=== PATIENT | male | born 1965 | race African-American/Black ===

== ENCOUNTER 2018-05-25 15:33 | Emergency (ER) | payer MEDICARE, MEDICAID ==
[2018-05-25] MEDS ORDERED: LOSARTAN 50 MG TABLET PO STA (15:57)
--- NOTE | 2018-05-25 16:01 | ED Physician Documentation ---
History of Present Illness - Stated complaint Stated Complaint: HIGH BP - Chief complaint Chief Complaint: General - History obtained from History obtained from: Patient - History of Present Illness Timing: Today, How many weeks ago (He has been checking his blood pressure at this pharmacy store periodically over the last few weeks. It has been trending a bit higher in the 140-160 range. Last week it was 180 systolic and he rested for a while and the repeat was 140. He had it checked again today and it was 180/110. He talked to the pharmacist who suggested he come to the ER. He denies any chest pain, headache, fluid retention or edema, general weakness or paresthesias. He has not had a recent change in diet nor activity level. He does not take any current blood pressure medicines. He did have high blood pressure several years ago and was on some blood pressure medicine ("a small red pill I think)". He previously had been to [facility] [place] in the past.) Quality: No chest pain, headache nor dyspnea. Associated symptoms: none - Treatment prior to arrival Treatment prior to arrival: none Review of Systems Constitutional: denies: Myalgias, Fatigue Nose: reports: Congestion (mild seasonal). denies: Rhinorrhea / runny nose Throat: denies: Sore throat Cardiac: denies: Chest pain / pressure, Palpitations, Pedal edema, Calf pain Respiratory: denies: Dyspnea, Cough, Wheezing GI: denies: Abdominal Pain, Vomiting, Diarrhea, Bloody / black stool : denies: Dysuria, Frequency Skin: denies: Rash Musculoskeletal: denies: Neck pain, Back pain Neurologic: denies: Generalized weakness, Focal weakness, Numbness, Near syncope, Altered mental status, Headache PD PAST MEDICAL HISTORY - Past Medical History Past Medical History: No Cardiovascular: Hypertension (several years ago, but improved so was taken off meds by PCP. ) Respiratory: None Neuro: None Endocrine/Autoimmune: None - Past Surgical History Past Surgical History: Yes Ortho: Hip replacement - Present Medications Home Medications: Ambulatory Orders Medication Instructions Recorded Confirmed Losartan [Cozaar] 50 mg PO DAILY #30 tablet 05/25/18 - Allergies Allergies/Adverse Reactions: Allergies Allergy/AdvReac Type Severity Reaction Status Date / Time hydrocodone Allergy Itching Verified 05/25/18 15:47 acetaminophen [From Percocet] AdvReac Nausea Verified 05/25/18 15:47 oxycodone HCl * AdvReac Nausea Verified 05/25/18 15:47 [From Percocet] - Living Situation Living Situation: reports: With spouse/s.o. Living Arrangement: reports: At home - Social History Does the pt smoke?: Yes Smoking Status: Current every day smoker Does the pt drink ETOH?: Yes Does the pt have substance abuse?: No - Family History Family history: reports: Non contributory - Immunizations Immunizations are current?: Yes PD ED PE NORMAL - Vitals Vital signs reviewed: Yes - General General: Alert and oriented X 3, No acute distress, Well developed/nourished - HEENT HEENT: Pharynx benign - Neck Neck: Supple, no meningeal sign, No adenopathy - Cardiac Cardiac: RRR, No murmur - Respiratory Respiratory: Clear bilaterally - Abdomen Abdomen: Soft, Non tender - Derm Derm: Normal color, Warm and dry - Extremities Extremities: No deformity, No tenderness to palpate, No edema, No calf tender ness / cord - Neuro Neuro: Alert and oriented X 3, No motor deficit, Normal speech Results - Vitals Vitals: Vital Signs - 24 hr 05/25/18 05/25/18 15:40 16:11 Temperature 36.4 C L Heart Rate 99 87 Respiratory 16 Rate Blood Pressure 189/101 H 187/112 H O2 Saturation 100 100 Oxygen O2 Source Room air - Labs Labs: Laboratory Tests 05/25/18 05/25/18 14:02 14:02 WBC 5.2 RBC 4.23 L Hgb 13.2 L Hct 39.0 L MCV 92.1 MCH 31.2 H MCHC 33.9 RDW 13.7 Plt Count 232 MPV 6.1 L Neut # (Auto) 3.5 Lymph # (Auto) 1.0 L Rice # (Auto) 0.6 Eos # (Auto) 0.0 Baso # (Auto) 0.0 Absolute Nucleated RBC 0.00 Nucleated RBC % 0.0 Sodium 126 L Potassium 4.3 Chloride 94 L Carbon Dioxide 22 Anion Gap 10.0 BUN 5 L Creatinine 1.1 Estimated GFR (MDRD) 85 L Glucose 98 Calcium 9.2 Magnesium 2.3 Total Bilirubin 0.5 AST 26 ALT 28 Alkaline Phosphatase 52 Total Protein 7.7 Albumin 4.3 Globulin 3.4 Albumin/Globulin Ratio 1.3 Lipase 19 L PD MEDICAL DECISION MAKING - ED course Complexity details: considered differential (Blood pressure is high at 189/101. He states it was high last week and a couple of weeks before. This is a reasona ble enough trend and he has a prior history of hypertension years ago. Seems reasonable to start a low dose blood pressure medicine again. Will check basic electrolytes and kidney function. Otherwise he has not had any confusion or headache or chest pain or dyspnea so no apparent major organ dysfunction and again we will check his kidney function level. You can start a low-dose losartan and have him follow-up with the clinic in 1-2 weeks to see how his blood pressure is doing. He can periodically check it in the interval time.), d/w patient Departure - Departure Disposition: 01 Home, Self Care Clinical Impression: Hyponatremia High blood pressure Qualifiers: Hypertension type: other secondary hypertension Qualified Code(s): I15.8 - Other secondary hypertension Condition: Stable Record reviewed to determine appropriate education?: Yes Instructions: ED Hypertension [place] Tx, ED Hyponatremia Follow-Up: Melodie Marcelino ARNP [Primary Care Provider] - Prescriptions: Losartan [Cozaar] 50 mg PO DAILY #30 tablet Comments: Your blood count and kidney function is okay. Your electrolytes show slightly low sodium level your other electrolytes are okay. This could potentially come from over hydrating with water or alcohol. Be sure to not drink excessively. Regular diet. You do not want to add salt to your diet as I will increase your blood pressure. The low sodium on the blood test will correct itself with regular food and fluid intake. Start the daily blood pressure medicine and recheck with your primary care clinic in about 1-2 weeks, call tomorrow for an appointment.
[2018-05-25 16:13] LABS: BASOPHILS % (AUTO) 0.7 %; EOSINOPHILS % (AUTO) 0.2 %; HGB - HEMOGLOBIN 13.2 g/dL (14.0-18.0); LYMPHOCYTES % (AUTO) 19.4 %; MEAN CORPUSCULAR HEMOGLOBIN 31.2 pg (27.0-31.0); MEAN CORPUSCULAR HGB CONC 33.9 g/dL (32.0-36.0); MEAN CORPUSCULAR VOLUME 92.1 fL (80.0-94.0); MEAN PLATELET VOLUME 6.1 fL (7.4-11.4); MONOCYTES # (AUTO) 0.6 10^3/uL (0.0-1.0); MONOCYTES % (AUTO) 11.4 %; NEUTROPHILS # (AUTO) 3.5 10^3/uL (1.5-6.6); NEUTROPHILS % (AUTO) 68.3 %; PLT - PLATELET COUNT 232 10^3/uL (130-450); RED BLOOD COUNT 4.23 10^6/uL (4.70-6.10); RED CELL DISTRIBUTION WIDTH 13.7 % (12.0-15.0); WHITE BLOOD COUNT 5.2 x10^3/uL (4.8-10.8)
[2018-05-25 16:24] LABS: ALBUMIN 4.3 g/dL (3.2-5.5); ALBUMIN/GLOBULIN RATIO 1.3 (1.0-2.2); BILIRUBIN,TOTAL 0.5 mg/dL (0.2-1.0); CALCIUM 9.2 mg/dL (8.5-10.3); CREATININE 1.1 mg/dL (0.6-1.2); MAGNESIUM 2.3 mg/dL (1.7-2.8); TOTAL PROTEIN 7.7 g/dL (6.7-8.2)
[2018-05-25 16:33] VITALS: BP 176/100
== END 2018-05-25 16:38 | disposition home or self-care (01) ==
LOC: ED 15:33
DX: E87.1 Hypo-osmolality and hyponatremia (principal); I15.8 Other secondary hypertension; F17.200 Nicotine dependence, unspecified, uncomplicated; Z96.649 Presence of unspecified artificial hip joint
CPT/HCPCS: 36415; 80053; 82088; 83690; 83735; 84244; 84443; 85025; 99283; A9270

== ENCOUNTER 2018-06-11 07:52 | Outpatient (CLI) | payer MEDICARE, MEDICAID ==
[2018-06-11 12:42] LABS: % IRON SATURATION 32 % (20-50); BUN - BLOOD UREA NITROGEN 7 mg/dL (6-20); CALCIUM 9.2 mg/dL (8.5-10.3); CARBON DIOXIDE - CO2 25 mmol/L (21-32); CHLORIDE 94 mmol/L (101-111); CHOL/HDL RATIO 1.7 (<5.0); CHOLESTEROL 171 mg/dL; CREATININE 1.2 mg/dL (0.6-1.2); GFR - MDRD 76 (>89); GLUCOSE 109 mg/dL (70-100); HDL CHOLESTEROL 100 mg/dL; IRON 95 ug/dL (45-182); LDL CHOLESTEROL,CALCULATED 62 mg/dL; LDL/HDL RATIO 0.6 (<3.6); SODIUM 130 mmol/L (135-145); TOTAL IRON BINDING CAPACITY 293 ug/dL (250-450); TRANSFERRIN 209 mg/dL (180-329); VLDL CHOLESTEROL 9 mg/dL
[2018-06-11 12:44] LABS: THYROID STIMULATING HORMONE 6.9 uIU/mL (0.34-5.60)
[2018-06-11 12:49] LABS: FERRITIN 160.8 ng/mL (23.9-336.2)
[2018-06-11 12:52] LABS: FOLATE 10.92 ng/mL (5.90 - >24.8)
== END 2018-06-11 07:53 | disposition home or self-care (01) ==
LOC: LAB.N 07:52
PROVIDERS: ATTEND Nurse Practitioner
DX: I10 Essential (primary) hypertension (principal); E87.1 Hypo-osmolality and hyponatremia; D64.9 Anemia, unspecified; F10.20 Alcohol dependence, uncomplicated
CPT/HCPCS: 36415; 80048; 80061; 82607; 82728; 82746; 83540; 83721; 84443; 84466

== ENCOUNTER 2018-06-13 10:37 | Emergency (ER) | payer MEDICARE, MEDICAID ==
--- NOTE | 2018-06-13 11:26 | ED Physician Documentation ---
History of Present Illness - Stated complaint Stated Complaint: CP - Chief complaint Chief Complaint: Cardiac - Additonal information Additional information: hx from pt 53 male to ED for int CP X 1 week pains are very brief - just a few sec sharp and ant no diaphoresis soa or NV has a cough no leg pain or swelling no recent travel hx HTN and smoker no HLD DM Review of Systems Constitutional: denies: Fever, Chills, Sweats Cardiac: reports: Chest pain / pressure Respiratory: reports: Cough. denies: Dyspnea GI: denies: Abdominal Pain, Vomiting, Diarrhea Endocrine: denies: Easy bruising / bleeding Immunocompromised: denies: Immunocompromised PD PAST MEDICAL HISTORY - Past Medical History Cardiovascular: Hypertension (several years ago, but improved so was taken off meds by PCP. ) Respiratory: None Neuro: None Endocrine/Autoimmune: None - Past Surgical History Past Surgical History: Yes Ortho: Hip replacement - Present Medications Home Medications: Ambulatory Orders Medication Instructions Recorded Confirmed Losartan [Cozaar] 50 mg PO DAILY #30 tablet 05/25/18 - Allergies Allergies/Adverse Reactions: Allergies Allergy/AdvReac Type Severity Reaction Status Date / Time hydrocodone Allergy Itching Verified 05/25/18 15:47 acetaminophen [From Percocet] AdvReac Nausea Verified 05/25/18 15:47 oxycodone HCl * AdvReac Nausea Verified 05/25/18 15:47 [From Percocet] - Social History Does the pt smoke?: Yes Smoking Status: Current every day smoker Does the pt drink ETOH?: Yes Does the pt have substance abuse?: No - Immunizations Immunizations are current?: Yes PD ED PE NORMAL - Vitals Vital signs reviewed: Yes - Neck Neck: Supple, no meningeal sign - Cardiac Cardiac: RRR - Respiratory Respiratory: No respiratory distress, Clear bilaterally - Abdomen Abdomen: Soft, Non tender - Derm Derm: Normal color - Extremities Extremities: No deformity, No edema, No calf tenderness / cord Results - Vitals Vitals: Vital Signs - 24 hr 06/13/18 06/13/18 10:54 12:26 Temperature 36.6 C 36.8 C Heart Rate 98 84 Respiratory 20 16 Rate Blood Pressure 145/84 H 125/82 H O2 Saturation 100 99 Oxygen O2 Source Room air - EKG (time done) 1045 Rate: Rate (enter#) (97) Rhythm: NSR, SVT Intervals: Prolonged VT QRS: Normal Ischemia: Normal ST segments - Labs Labs: Laboratory Tests 06/13/18 11:43 Troponin I < 0.04 - Rads (name of study) CXR Radiology: See rad report (NACPD) Departure - Departure Disposition: 01 Home, Self Care Clinical Impression: Chest pain Qualifiers: Chest pain type: unspecified Qualified Code(s): R07.9 - Chest pain, unspecified Condition: Good Comments: The test for your heart and the xray were fine I am not sure what is causing the symptoms but it does not seem to be a heart attack, blood clot, aneurysm or collapsed lung I think it is safe for you to go home. Please follow up with your PMD as needed
--- NOTE | 2018-06-13 12:35 | XRAY Report ---
Reason: soa Procedure Date: 06/13/2018 Accession Number: [id number] / [id number] Procedure: XR - Chest 2 View X-Ray CPT Code: 31523 FULL RESULT: EXAM: CHEST RADIOGRAPHY EXAM DATE: 06/13/2018 11:47 AM. CLINICAL HISTORY: Short of air. COMPARISON: 01/25/2012. TECHNIQUE: 2 views. FINDINGS: Lungs/Pleura: No focal opacities evident. No pleural effusion. No pneumothorax. Normal volumes. Mediastinum: Heart and mediastinal contours are unremarkable. Other: None. IMPRESSION: No acute cardiopulmonary abnormality. RADIA
[2018-06-13 14:05] VITALS: BP 135/83
== END 2018-06-13 14:15 | disposition home or self-care (01) ==
LOC: ED 10:37
DX: R07.9 Chest pain, unspecified (principal); I45.81 Long QT syndrome; I10 Essential (primary) hypertension; F17.200 Nicotine dependence, unspecified, uncomplicated; Z96.649 Presence of unspecified artificial hip joint
CPT/HCPCS: 36415; 71046; 84484; 93005; 99283

== ENCOUNTER 2018-06-15 08:00 | Outpatient (CLI) | payer MEDICARE, MEDICAID ==
[2018-06-17 12:27] LABS: THYROID PEROXIDASE ANTIBODIES 1 IU/mL (<9)
== END 2018-06-15 08:01 | disposition home or self-care (01) ==
LOC: LAB.N 08:00
PROVIDERS: ATTEND Nurse Practitioner
DX: E03.9 Hypothyroidism, unspecified (principal)
CPT/HCPCS: 36415; 84439; 84481; 86376; 86800

== ENCOUNTER 2018-06-17 10:25 | Outpatient (CLI) | payer MEDICARE, MEDICAID ==
[2018-06-17 13:38] LABS: THYROID STIMULATING HORMONE 5.42 uIU/mL (0.34-5.60)
[2018-06-17 13:41] LABS: FREE T4 (FREE THYROXINE) 0.85 ng/dL (0.58-1.64)
[2018-06-17 13:46] LABS: FERRITIN 189.9 ng/mL (23.9-336.2)
[2018-06-17 13:49] LABS: FOLATE 18.51 ng/mL (5.90 - >24.8)
[2018-06-17 13:50] LABS: % IRON SATURATION 37 % (20-50); BUN - BLOOD UREA NITROGEN 7 mg/dL (6-20); CARBON DIOXIDE - CO2 24 mmol/L (21-32); CHLORIDE 82 mmol/L (101-111); CHOL/HDL RATIO 1.7 (<5.0); CHOLESTEROL 169 mg/dL; GFR - MDRD 94 (>89); GLUCOSE 97 mg/dL (70-100); HDL CHOLESTEROL 98 mg/dL; IRON 114 ug/dL (45-182); LDL CHOLESTEROL,CALCULATED 63 mg/dL; LDL/HDL RATIO 0.6 (<3.6); TOTAL IRON BINDING CAPACITY 307 ug/dL (250-450); TRANSFERRIN 219 mg/dL (180-329); VLDL CHOLESTEROL 8 mg/dL
[2018-06-17 13:51] LABS: SODIUM 117 mmol/L (135-145)
== END 2018-06-17 10:26 ==
LOC: LAB.N 10:25
PROVIDERS: ATTEND Nurse Practitioner
DX: I10 Essential (primary) hypertension (principal); D64.9 Anemia, unspecified; E87.1 Hypo-osmolality and hyponatremia; F10.20 Alcohol dependence, uncomplicated; E03.9 Hypothyroidism, unspecified
CPT/HCPCS: 36415; 80048; 80061; 82607; 82728; 82746; 83540; 83721; 84432; 84439; 84443; 84466; 84481; 86376; 86800

== ENCOUNTER 2018-06-17 14:28 | Inpatient (IN) | payer MEDICARE, MEDICAID ==
[2018-06-17 15:20] LABS: BASOPHILS % (AUTO) 0.5 %; EOSINOPHILS % (AUTO) 0.2 %; LYMPHOCYTES # (AUTO) 1.1 10^3/uL (1.5-3.5); LYMPHOCYTES % (AUTO) 16.2 %; MEAN CORPUSCULAR HEMOGLOBIN 31.5 pg (27.0-31.0); MEAN CORPUSCULAR HGB CONC 35.3 g/dL (32.0-36.0); MEAN CORPUSCULAR VOLUME 89.2 fL (80.0-94.0); MONOCYTES # (AUTO) 0.6 10^3/uL (0.0-1.0); MONOCYTES % (AUTO) 9.1 %; NEUTROPHILS # (AUTO) 5.2 10^3/uL (1.5-6.6); PLT - PLATELET COUNT 227 10^3/uL (130-450); RED BLOOD COUNT 4.13 10^6/uL (4.70-6.10); RED CELL DISTRIBUTION WIDTH 12.7 % (12.0-15.0)
--- NOTE | 2018-06-17 15:20 | ED Physician Documentation ---
History of Present Illness - Stated complaint Stated Complaint: SENT BY DOC - Chief complaint Chief Complaint: General - History obtained from History obtained from: Patient, Family - History of Present Illness Timing: Today Pain level max: 0 Pain level now: 0 Improved by: Nothing Worsened by: Nothing - Treatment prior to arrival Treatment prior to arrival: Salt tablets - Additonal information Additional information: 53-year-old male with history of hypertension had been taking hydrochlorothiazide 12.5 mg daily and losartan 100 mg daily the past 1-1/2 weeks here with complaint of low sodium. His PCP inform him his sodium is 115. Patient denies any associated symptoms except room spinning sensation when he gets up. Review of Systems Ten Systems: 10 systems reviewed and negative Constitutional: denies: Fever, Myalgias Eyes: denies: Decreased vision Ears: denies: Ear pain, Tinnitus/ringing Cardiac: denies: Chest pain / pressure Respiratory: denies: Dyspnea GI: denies: Abdominal Pain Musculoskeletal: denies: Back pain Neurologic: reports: Other (Dizziness described as room spinning when he gets up.). denies: Generalized weakness, Focal weakness, Near syncope, Seizure, Confused, Altered mental status PD PAST MEDICAL HISTORY - Past Medical History Cardiovascular: Hypertension (several years ago, but improved so was taken off meds by PCP. ) Respiratory: None Neuro: None Endocrine/Autoimmune: None - Past Surgical History Past Surgical History: Yes Ortho: Hip replacement - Present Medications Home Medications: Ambulatory Orders Medication Instructions Recorded Confirmed Aspirin 325 mg PO 06/17/18 Hydrochlorothiazide 12.5 mg PO 06/17/18 Losartan [Cozaar] 100 mg PO DAILY 06/17/18 buPROPion [Wellbutrin Xl] 06/17/18 - Allergies Allergies/Adverse Reactions: Allergies Allergy/AdvReac Type Severity Reaction Status Date / Time hydrocodone Allergy Itching Verified 06/17/18 14:39 acetaminophen [From Percocet] AdvReac Nausea Verified 06/17/18 14:39 oxycodone HCl * AdvReac Nausea Verified 06/17/18 14:39 [From Percocet] - Social History Does the pt smoke?: Yes Smoking Status: Current every day smoker Does the pt drink ETOH?: Yes Does the pt have substance abuse?: No - Immunizations Immunizations are current?: Yes - POLST Patient has POLST: No PD ED PE NORMAL - Vitals Vital signs reviewed: Yes - General General: Alert and oriented X 3, No acute distress, Well developed/nourished - HEENT HEENT: EOMI - Neck Neck: Supple, no meningeal sign - Cardiac Cardiac: RRR, No murmur - Respiratory Respiratory: No respiratory distress, Clear bilaterally - Abdomen Abdomen: Normal bowel sounds, Soft, Non tender, Non distended - Back Back: No CVA TTP - Derm Derm: Warm and dry - Extremities Extremities: No deformity - Neuro Neuro: Alert and oriented X 3, Normal speech - Psych Psych: Normal mood, Normal affect Results - Vitals Vitals: Vital Signs - 24 hr 06/17/18 14:36 Temperature 36.6 C Heart Rate 110 H Respiratory 15 Rate Blood Pressure 155/92 H O2 Saturation 100 Oxygen O2 Source Room air - EKG (time done) 1442 Rate: Rate (enter#) Rhythm: Sinus tachycardia [place]: Normal Intervals: Prolonged [place] QRS: Normal Ischemia: Normal ST segments - Labs Labs: Laboratory Tests 06/17/18 06/17/18 15:00 15:00 WBC 7.0 RBC 4.13 L Hgb 13.0 L Hct 36.8 L MCV 89.2 MCH 31.5 H MCHC 35.3 RDW 12.7 Plt Count 227 MPV 6.0 L Neut # (Auto) 5.2 Lymph # (Auto) 1.1 L Davison # (Auto) 0.6 Eos # (Auto) 0.0 Baso # (Auto) 0.0 Absolute Nucleated RBC 0.00 Nucleated RBC % 0.1 Sodium 118 L* Potassium 3.3 L Chloride 81 L Carbon Dioxide 25 Anion Gap 12.0 BUN 7 Creatinine 1.1 Estimated GFR (MDRD) 85 L Glucose 107 H Calcium 9.2 PD MEDICAL DECISION MAKING - ED course Complexity details: reviewed results, re-evaluated patient (1605Patient informed of test results and agreed to admission.), considered differential (Hyponatremia related to antihypertensive and alcohol intake), d/w patient, d/w PMD (Case discussed in detail with the hospitalist, Dr. Cid. She will admit the patient to telemetry, full admission at 1710) Departure - Departure Disposition: [facility] DC/Xfer Clinical Impression: Hypokalemia, Hyponatremia Condition: Stable
[2018-06-17 15:32] LABS: CALCIUM 9.2 mg/dL (8.5-10.3); CREATININE 1.1 mg/dL (0.6-1.2)
[2018-06-17] MEDS ORDERED: SODIUM CHLORIDE 0.9% 1,000 ML IV ONE (16:52)
[2018-06-17] MEDS ORDERED: POTASSIUM CHLORIDE 20 MEQ TABLET PO STA (17:21)
[2018-06-17] MEDS ORDERED: SODIUM CHLORIDE FLUSH 0.9% 10 ML SYRINGE IVP PRN (17:53)
[2018-06-17] MEDS ORDERED: ZOLPIDEM 5 MG TABLET PO PRN (17:53)
[2018-06-17] MEDS ORDERED: ONDANSETRON 4 MG/2 ML VIAL IVP PRN (17:53)
[2018-06-17] MEDS ORDERED: LORazepam 2 MG/ML VIAL IVP PRN (18:07)
--- NOTE | 2018-06-17 18:09 | HISTORY & PHYSICAL EXAMINATION ---
Chief Complaint - Chief Complaint Chief Complaint: no complaint History of Present Illness - History of Present Illness HPI Comment/Other: Mr. Palomo is a 53-year-old male with a past medical history of hypertension, anxiety, chronic hyponatremia, current cigarette smoker, and alcohol abuse, who was sent by his PCP for abnormal electrolytic. Pt state he went to see his PCP today morning and had blood work. today afternoon he was called by his PCP to go to ER for his low sodium. He report he "has no symptoms at all". There is no nausea, vomiting, abdominal pain, headache, chest pain, confusion, loss of energy, drowsiness or fatigue, muscle spasms or cramps, seizure. Pt report he has hx of HTN, he took hydrochlorothiazide 12.5 mg daily and losartan 100 mg daily. he also report when he feels anxiety he may feel his heart pace running a little fast. Pt denies chest pain, shortness of breath, headache. He report he still smoke cigarette one pack daily, drink 6 pack of beer daily. He denies illicit drug abuse. he report he is unemployed disability status because of his hip replacement. His Na is 118, K is 3.3, other lab value are unremarkable. EKG reveals ST with HR at 103, otherwise he is hemodynamic stable. History - Past Medical History Cardiovascular: reports: Hypertension (several years ago, but improved so was taken off meds by PCP. ) Respiratory: reports: None Neuro: reports: None Endocrine/Autoimmune: reports: None - Past Surgical History Ortho: reports: Hip replacement - Family & Social History Family History: Mother: , Cancer, Father: Family History Comment/Other: Pt report he is living at [place] with his and one child. he did not remember clearly his parents health status. Social History Notes: He report he still smoke cigarette one pack daily, drink 6 pack of beer daily. he is on disability unemployed status - Substance History Use: Uses substance without health or social issues: Tobacco Abuse: Recurrent use of substance despite neg consequences: Alcohol - POLST Patient has POLST: No POLST Status: Full Code Meds/Allgy - Home Medications Home Medications: Ambulatory Orders Medication Instructions Recorded Confirmed Aspirin 325 mg PO DAILYWM 06/17/18 06/17/18 Hydrochlorothiazide 12.5 mg PO DAILY 06/17/18 06/17/18 Losartan Potassium [Cozaar] 100 mg PO DAILY 06/17/18 06/17/18 buPROPion [Wellbutrin Xl] 150 mg PO DAILY 06/17/18 06/17/18 - Allergies Allergies/Adverse Reactions: Allergies Allergy/AdvReac Type Severity Reaction Status Date / Time hydrocodone Allergy Itching Verified 06/17/18 14:39 acetaminophen [From Percocet] AdvReac Nausea Verified 06/17/18 14:39 oxycodone HCl * AdvReac Nausea Verified 06/17/18 14:39 [From Percocet] Review of Systems - Constitutional Constitutional: denies: Fatigue, Fever, Chills, Malaise, Weakness, Poor appetite, Diaphoresis, Night sweats, Weight gain, Weight loss - Eyes Eyes: denies: Pain, Irritation, Amaurosis, Blurred vision, Spots in vision, Field loss, Vision loss, Dipolpia, Corrective lenses - Ears, Nose & Throat Ears, Nose & Throat: denies: Ear pain, Hearing loss, Tinnitus, Vertigo, Nasal pain, Nasal discharge, Nosebleeds, Nasal obstruction, Nasal congestion, Postnasal drainage, Dentures, Sore throat, Mouth lesions, Bleeding gums - Cardiovascular Cariovascular: denies: Irregular heart rate, Palpitations, Chest pain, Edema, Lightheadedness, Syncope, Exertional dyspnea, Decr. exercise tolerance - Respiratory Respiratory: denies: Cough, Sputum production, Wheezing, Snoring, Hemoptysis, Orthopnea, SOB at rest, SOB with exertion, Apnea, Stridor, Pleuritic pain - Gastrointestinal Gastrointestinal: denies: Abdominal pain, Abdominal distention, Constipation, Diarrhea, Change in bowel habits, Rectal bleeding, Black stools, Bloody stools, Nausea, Vomiting, Bile emesis, Trey blood emesis, Coffee grounds emesis, Reflu x/heartburn, Bloating - Genitourinary Genitourinary: denies: Dysuria, Frequency, Urgency, Hematuria, Incontinence, Flank pain, Nocturia, Urethral discharge - Musculoskeletal Musculoskeletal: denies: Muscle pain, Back pain, Muscle aches, Stiffness, Limited range of motion, Muscle weakness, Gout, Joint pain - Integumentary Integumentary: denies: Rash, Pruritis, Lesions, Dryness, Lumps, Acne, Pigment changes, Nail changes - Neurological Neurological: denies: General weakness, Focal weakness, Headache, Dizziness, Numbness, Memory problems, Pre-existing deficit, Abnormal gait, Seizures, Incoordination, Slurred speech - Psychiatric Psychiatric: denies: Depression, Anxiety, Suicidal, Delusions, Hallucinations, Homicidal - Endocrine Endocrine: denies: Polyuria, Polydypsia, Polyphagia, Intolerance to cold - Hematologic/Lymphatic Hematologic/Lymphatic: denies: Anemia, Lymphadenopathy, Recurrent infections Prior Level of Functionality: independent Exam - Vital Signs Vital Signs: Vital Signs x48h Temp Pulse Resp BP Pulse Ox 06/17/18 14:36 36.6 C 110 H 15 155/92 H 100 - Physical Exam General Appearance: positive: No acute distress, Alert. negative: Lethargic Eyes Bilateral: positive: Normal inspection, PERRL. negative: No lid inflammation, Conjunctivae nml ENT: positive: ENT inspection nml, Pharynx nml, No signs of dehydration. negative: Purulent nasal drainage, Pharyngeal erythema, Oral lesions Neck: positive: Nml inspection, Thyroid nml, No JVD, Trachea midline. negative: Thyromegaly, Lymphadenopathy (R), Lymphadenopathy (L), Stiff neck, Swelling/bruising, Tracheal deviation Respiratory: positive: Chest non-tender, No respiratory distress, Breath sounds nml. negative: Wheezes, Rales, Rhonchi Cardiovascular: positive: Regular rate & rhythm, No murmur, No gallop. negative: Irregularly irregular, Extrasystoles, Tachycardia, Bradycardia, JVD present, Systolic murmur, Diastolic murmur Peripheral Pulses: positive: 2+ Abdomen: positive: Non-tender, No organomegaly, Nml bowel sounds, No distention. negative: Tenderness, Guarding, Rebound Back: positive: Nml inspection. negative: CVA tenderness (R), CVA tenderness (L) Skin: positive: Color nml, No rash, Warm, Dry. negative: Cyanosis, Diaphoresis, Pallor Extremities: positive: Non-tender, Full ROM, Nml appearance. negative: Calf tenderness, Joint swelling, Brennen's sign/cords Neurologic/Psychiatric: positive: Oriented x3, Motor nml, Sensation nml, Mood/affect nml. negative: Weakness, Sensory loss, Facial droop, Slurred/abnml speech, Depressed mood/affect Sepsis Event Note (H) - Evaluation Current Stage of Sepsis: Ruled out Conclusion/Plan - Problem List (1) Hyponatremia Conclusion/Plan: pt is asymptomatic, Na is 118. pt has hx of Na around 130 will correct with NS of IVF, since pt is asymptomatic Lab monitor Hold pt HCTZ advise pt quit alcohol (2) Hypokalemia Conclusion/Plan: pt's k is 3.3, asymptomatic, will replacement with potassium lab monitor (3) High blood pressure Conclusion/Plan: pt present mild elevated BP with slight tachycardia Hold his HCTZ, resume his home meds Losartan add Beta-mely vital monitor Qualifiers: Hypertension type: other secondary hypertension Qualified Code(s): I15.8 - Other secondary hypertension (4) Anxiety Conclusion/Plan: pt report hx of anxiety which can cause his tachycardia will resume home home after reconcile add Ativan PRN now (5) Currently smokes tobacco Conclusion/Plan: advise pt quit smoking, pt decline nicotine Patch (6) Alcohol abuse Conclusion/Plan: advise pt's alcohol issue for quitting. CAWA protocol vital monitor (7) Tachycardia Conclusion/Plan: it seems caused by pt's anxiety. EKG reveals ST at HR 103. pt denies chest pain, palpitation treat anxiety add beta-mely tele and vital monitor (8) Full code status Conclusion/Plan: pt request full code - Lab Results Fish Bones: 06/18/18 06:00 06/18/18 06:00 Core Measures - Anticipated LOS I expect patient to be DC'd or transferred within 96 hours.: Yes - DVT/VTE - Prophylaxis VTE/DVT Device ordered at admit?: Yes
[2018-06-17 19:31] LABS: MUDS CUTOFF CONCENTRATIONS CUTOFF CONC BELOW:
[2018-06-17 19:48] LABS: AMPHETAMINE SCREEN,URINE NEGATIVE (NEGATIVE); BENZODIAZEPINES SCREEN, URINE NEGATIVE (NEGATIVE); COCAINE SCREEN URINE NEGATIVE (NEGATIVE); METHADONE SCREEN, URINE NEGATIVE (NEGATIVE); METHAMPHETAMINES SCREEN, URINE NEGATIVE (NEGATIVE); OPIATE SCREEN, URINE NEGATIVE (NEGATIVE); OXYCODONE SCREEN, URINE NEGATIVE (NEGATIVE); PROPOXYPHENE SCREEN, URINE NEGATIVE (NEGATIVE); TRICYCLIC ANTIDEPRESSANT,URINE NEGATIVE (NEGATIVE)
[2018-06-17] MEDS: LOSARTAN 50 MG TABLET PO SCH (20:31)
[2018-06-17] MEDS: FAMOTIDINE 20 MG TABLET PO SCH (20:32)
[2018-06-17] MEDS: METOPROLOL SUCCINATE 25 MG TABLET PO SCH (20:32)
[2018-06-17] MEDS: SODIUM CHLORIDE 0.9% 1,000 ML IV SCH (20:32)
[2018-06-18] MEDS: SODIUM CHLORIDE FLUSH 0.9% 10 ML SYRINGE IVP SCH ×3 (01:12→17:15)
[2018-06-18] MEDS: SODIUM CHLORIDE 0.9% 1,000 ML IV SCH ×2 (05:58→18:17)
[2018-06-18 06:24] LABS: BASOPHILS % (AUTO) 0.4 %; EOSINOPHILS % (AUTO) 0.2 %; HGB - HEMOGLOBIN 11.9 g/dL (14.0-18.0); LYMPHOCYTES # (AUTO) 0.9 10^3/uL (1.5-3.5); LYMPHOCYTES % (AUTO) 16.8 %; MEAN CORPUSCULAR HEMOGLOBIN 30.7 pg (27.0-31.0); MEAN CORPUSCULAR HGB CONC 33.2 g/dL (32.0-36.0); MEAN CORPUSCULAR VOLUME 92.6 fL (80.0-94.0); MEAN PLATELET VOLUME 5.9 fL (7.4-11.4); MONOCYTES # (AUTO) 0.5 10^3/uL (0.0-1.0); MONOCYTES % (AUTO) 9.7 %; NEUTROPHILS # (AUTO) 3.8 10^3/uL (1.5-6.6); NEUTROPHILS % (AUTO) 72.9 %; PLT - PLATELET COUNT 205 10^3/uL (130-450); RED BLOOD COUNT 3.87 10^6/uL (4.70-6.10); RED CELL DISTRIBUTION WIDTH 12.8 % (12.0-15.0); WHITE BLOOD COUNT 5.2 x10^3/uL (4.8-10.8)
[2018-06-18 06:34] LABS: ALBUMIN 3.6 g/dL (3.2-5.5); ALBUMIN/GLOBULIN RATIO 1.3 (1.0-2.2); BILIRUBIN,TOTAL 0.8 mg/dL (0.2-1.0); CALCIUM 8.3 mg/dL (8.5-10.3); MAGNESIUM 2.3 mg/dL (1.7-2.8); TOTAL PROTEIN 6.3 g/dL (6.7-8.2)
[2018-06-18] MEDS ORDERED: LOSARTAN 50 MG TABLET PO SCH (09:00)
--- NOTE | 2018-06-18 10:22 | CT Report ---
Reason: spinning and headache Procedure Date: 06/18/2018 Accession Number: [id number] / [id number] Procedure: CT - Head W/O CPT Code: FULL RESULT: EXAM: CT HEAD EXAM DATE: 06/18/2018 09:49 AM. CLINICAL HISTORY: Headache. COMPARISON: None. TECHNIQUE: Multiaxial CT images were obtained from the foramen magnum to the vertex. Reformats: Sagittal and coronal. IV contrast: None. In accordance with CT protocol optimization, one or more of the following dose reduction techniques were utilized for this exam: automated exposure control, adjustment of mA and/or KV based on patient size, or use of iterative reconstructive technique. FINDINGS: Parenchyma: No intraparenchymal hemorrhage. No evidence of mass, midline shift, or CT findings of infarction. Lowry-white differentiation is distinct. Extraaxial Spaces: Normal for age. No subdural or epidural collections identified. Ventricles: Normal in size and position. Sinuses and Orbits: Imaged paranasal sinuses, orbits, and mastoids show no significant abnormality. Bones: No evidence of fracture or calvarial defect. Other: None. IMPRESSION: Normal head CT. RADIA
[2018-06-18] MEDS: PRENATAL VITAMIN TABLET PO SCH (10:47)
[2018-06-18] MEDS: METOPROLOL SUCCINATE 25 MG TABLET PO SCH (10:47)
[2018-06-18] MEDS: LOSARTAN 50 MG TABLET PO SCH (10:47)
[2018-06-18] MEDS: FAMOTIDINE 20 MG TABLET PO SCH ×2 (10:47→22:29)
[2018-06-18] MEDS: ASPIRIN 325 MG TABLET PO SCH (10:47)
[2018-06-18] MEDS: POLYETHYLENE GLYCOL 3350 17 GM PACKET PO SCH (10:47)
[2018-06-18] MEDS: buPROPion XL 150 MG TABLET PO SCH (10:47)
[2018-06-18] MEDS: THIAMINE 100 MG TABLET PO SCH (10:47)
--- NOTE | 2018-06-18 14:39 | PROVIDER PROGRESS NOTE ---
Subjective - Prog Note Date Prog Note Date: 06/18/18 - Subjective Pt reports feeling: Improved Subjective: pt report he feel ok, but he complain of some spinning feeling when he stand up. He denies CP, SOB, fever, chill. Current Medications - Current Medications Current Medications: Active Medications Aspirin (Conchita) 325 mg PO DAILYWM [facility] Last Admin: 06/18/18 10:47 Dose: 325 mg Bupropion HCl (Wellbutrin Xl) 150 mg PO DAILY [facility] Last Admin: 06/18/18 10:47 Dose: 150 mg Famotidine (Pepcid) 20 mg PO BID [facility] Last Admin: 06/18/18 10:47 Dose: 20 mg Sodium Chloride (Normal Saline 0.9%) 1,000 mls @ 100 mls/hr IV .Q10H [facility] Last Admin: 06/18/18 05:58 Dose: 100 mls/hr Lorazepam (Ativan Inj (Vial)) 1 mg IVP Q30M PRN; Protocol PRN Reason: CIWA >8 Losartan Potassium (Cozaar) 100 mg PO DAILY [facility] Last Admin: 06/18/18 10:47 Dose: 100 mg Metoprolol Succinate (Toprol Xl) 25 mg PO DAILY [facility] Last Admin: 06/18/18 10:47 Dose: 25 mg Ondansetron HCl (Zofran Inj) 4 mg IVP Q6HR PRN PRN Reason: Nausea / Vomiting Polyethylene Glycol (Miralax) 17 gm PO DAILY [facility] Last Admin: 06/18/18 10:47 Dose: 17 gm Multivit/Folic Acid/Iron (Trinatal Rx 1) 1 tab PO DAILY [facility] Last Admin: 06/18/18 10:47 Dose: 1 tab Sodium Chloride (Normal Saline Flush 0.9%) 10 ml IVP PRN PRN PRN Reason: NEEDED PER PROVIDER ORDERS Sodium Chloride (Normal Saline Flush 0.9%) 10 ml IVP 0100,0900,1700 [facility] Last Admin: 06/18/18 10:48 Dose: 10 ml Thiamine HCl (Vitamin B-1) 100 mg PO DAILY [facility] Last Admin: 06/18/18 10:47 Dose: 100 mg Zolpidem Tartrate (Ambien) 5 mg PO QPM PRN PRN Reason: Insomnia Aspirin 325 mg PO DAILYWM 06/17/18 Hydrochlorothiazide 12.5 mg PO DAILY 06/17/18 Losartan Potassium [Cozaar] 100 mg PO DAILY 06/17/18 buPROPion [Wellbutrin Xl] 150 mg PO DAILY 06/17/18 Objective - Vital Signs/Intake & Output Reviewed Vital Signs: Yes Vital Signs: Vital Signs x48h Temp Pulse Pulse Pulse Pulse Pulse Resp 06/18/18 12:59 36.7 C 74 18 06/18/18 12:33 36.7 C 77 18 06/18/18 10:25 78 81 77 06/18/18 07:36 36.7 C 74 20 BP BP BP BP BP Pulse Ox 06/18/18 12:59 98 06/18/18 12:33 132/79 H 100 06/18/18 10:25 125/73 111/70 115/67 06/18/18 07:36 110/72 98 Intake & Output: Intake & Output 06/15/18 06/16/18 06/17/18 06/18/18 23:59 23:59 23:59 23:59 Intake Total 1620 1603.333 Output Total 500 Balance 1120 1603.333 - Objective General Appearance: positive: No acute distress, Alert. negative: Lethargic Eyes Bilateral: positive: Normal inspection, PERRL, No lid inflammation, Conjunctivae nml ENT: positive: ENT inspection nml, Pharynx nml, No signs of dehydration. negative: Purulent nasal drainage, Pharyngeal erythema, Oral lesions Neck: positive: Nml inspection, Thyroid nml, No JVD, Trachea midline. negative: Thyromegaly, Lymphadenopathy (R), Lymphadenopathy (L), Stiff neck, Swelling/bruising, Tracheal deviation Respiratory: positive: Chest non-tender, No respiratory distress, Breath sounds nml. negative: Wheezes, Rales, Rhonchi Cardiovascular: positive: Regular rate & rhythm, No murmur, No gallop. negative: Irregularly irregular, Extrasystoles, Tachycardia, Bradycardia, JVD present, Systolic murmur, Diastolic murmur Peripheral Pulses: 2+ Radial (R), 2+ Radial (L), 2+ Dorsalis pedis (R), 2+ Dorsalis pedis (L) Abdomen: positive: Non-tender, No organomegaly, Nml bowel sounds, No distention. negative: Tenderness, Guarding, Rebound Back: positive: Nml inspection. negative: CVA tenderness (R), CVA tenderness (L) Skin: positive: Color nml, No rash, Warm, Dry. negative: Cyanosis, Diaphoresis, Pallor Extremities: positive: Non-tender, Full ROM, Nml appearance. negative: Calf tenderness, Joint swelling, Brennen's sign/cords Neurologic/Psychiatric: positive: Oriented x3, Motor nml, Sensation nml, Mood/affect nml. negative: Weakness, Sensory loss, Facial droop, Slurred/abnml speech, Depressed mood/affect - Lab Results Fish Bones: 06/18/18 06:00 06/18/18 14:05 Other Labs: Lab Results x24hrs 06/18/18 06/18/18 06/18/18 Range/Units 14:05 06:00 06:00 WBC 5.2 (4.8-10.8) x10^3/uL RBC 3.87 L (4.70-6.10) 10^6/uL Hgb 11.9 L (14.0-18.0) g/dL Hct 35.8 L (42.0-52.0) % MCV 92.6 (80.0-94.0) fL MCH 30.7 (27.0-31.0) pg MCHC 33.2 (32.0-36.0) g/dL RDW 12.8 (12.0-15.0) % Plt Count 205 (130-450) 10^3/uL MPV 5.9 L (7.4-11.4) fL Neut # (Auto) 3.8 (1.5-6.6) 10^3/uL Lymph # (Auto) 0.9 L (1.5-3.5) 10^3/uL [place] # (Auto) 0.5 (0.0-1.0) 10^3/uL Eos # (Auto) 0.0 (0.0-0.7) 10^3/uL Baso # (Auto) 0.0 (0.0-0.1) 10^3/uL Absolute Nucleated RBC 0.01 x10^3/uL Nucleated RBC % 0.1 /100WBC Sodium 126 L 127 L (135-145) mmol/L Potassium 4.2 (3.5-5.0) mmol/L Chloride 95 L (101-111) mmol/L Carbon Dioxide 24 (21-32) mmol/L Anion Gap 8.0 (6-13) BUN 8 (6-20) mg/dL Creatinine 1.0 (0.6-1.2) mg/dL Estimated GFR (MDRD) 94 (>89) Glucose 98 (70-100) mg/dL Calcium 8.3 L (8.5-10.3) mg/dL Magnesium 2.3 (1.7-2.8) mg/dL Total Bilirubin 0.8 (0.2-1.0) mg/dL AST 20 (10-42) IU/L ALT 22 (10-60) IU/L Alkaline Phosphatase 54 (42-121) IU/L Total Protein 6.3 L (6.7-8.2) g/dL Albumin 3.6 (3.2-5.5) g/dL Globulin 2.7 (2.1-4.2) g/dL Albumin/Globulin Ratio 1.3 (1.0-2.2) Urine Opiates Screen (NEGATIVE) Ur Oxycodone Screen (NEGATIVE) Urine Methadone Screen (NEGATIVE) Ur Propoxyphene Screen (NEGATIVE) Ur Barbiturates Screen (NEGATIVE) Ur Tricyclics Screen (NEGATIVE) Ur Phencyclidine Scrn (NEGATIVE) Ur Amphetamine Screen (NEGATIVE) U Methamphetamines Scrn (NEGATIVE) U Benzodiazepines Scrn (NEGATIVE) Urine Cocaine Screen (NEGATIVE) U Cannabinoids Screen (NEGATIVE) 06/17/18 06/17/18 06/17/18 Range/Units 19:20 18:11 15:00 WBC (4.8-10.8) x10^3/uL RBC (4.70-6.10) 10^6/uL Hgb (14.0-18.0) g/dL Hct (42.0-52.0) % MCV (80.0-94.0) fL MCH (27.0-31.0) pg MCHC (32.0-36.0) g/dL RDW (12.0-15.0) % Plt Count (130-450) 10^3/uL MPV (7.4-11.4) fL Neut # (Auto) (1.5-6.6) 10^3/uL Lymph # (Auto) (1.5-3.5) 10^3/uL [place] # (Auto) (0.0-1.0) 10^3/uL Eos # (Auto) (0.0-0.7) 10^3/uL Baso # (Auto) (0.0-0.1) 10^3/uL Absolute Nucleated RBC x10^3/uL Nucleated RBC % /100WBC Sodium 118 L* 118 L* (135-145) mmol/L Potassium 3.3 L (3.5-5.0) mmol/L Chloride 81 L (101-111) mmol/L Carbon Dioxide 25 (21-32) mmol/L Anion Gap 12.0 (6-13) BUN 7 (6-20) mg/dL Creatinine 1.1 (0.6-1.2) mg/dL Estimated GFR (MDRD) 85 L (>89) Glucose 107 H (70-100) mg/dL Calcium 9.2 (8.5-10.3) mg/dL Magnesium (1.7-2.8) mg/dL Total Bilirubin (0.2-1.0) mg/dL AST (10-42) IU/L ALT (10-60) IU/L Alkaline Phosphatase (42-121) IU/L Total Protein (6.7-8.2) g/dL Albumin (3.2-5.5) g/dL Globulin (2.1-4.2) g/dL Albumin/Globulin Ratio (1.0-2.2) Urine Opiates Screen NEGATIVE (NEGATIVE) Ur Oxycodone Screen NEGATIVE (NEGATIVE) Urine Methadone Screen NEGATIVE (NEGATIVE) Ur Propoxyphene Screen NEGATIVE (NEGATIVE) Ur Barbiturates Screen NEGATIVE (NEGATIVE) Ur Tricyclics Screen NEGATIVE (NEGATIVE) Ur Phencyclidine Scrn NEGATIVE (NEGATIVE) Ur Amphetamine Screen NEGATIVE (NEGATIVE) U Methamphetamines Scrn NEGATIVE (NEGATIVE) U Benzodiazepines Scrn NEGATIVE (NEGATIVE) Urine Cocaine Screen NEGATIVE (NEGATIVE) U Cannabinoids Screen POSITIVE H (NEGATIVE) 06/17/18 Range/Units 15:00 WBC 7.0 (4.8-10.8) x10^3/uL RBC 4.13 L (4.70-6.10) 10^6/uL Hgb 13.0 L (14.0-18.0) g/dL Hct 36.8 L (42.0-52.0) % MCV 89.2 (80.0-94.0) fL MCH 31.5 H (27.0-31.0) pg MCHC 35.3 (32.0-36.0) g/dL RDW 12.7 (12.0-15.0) % Plt Count 227 (130-450) 10^3/uL MPV 6.0 L (7.4-11.4) fL Neut # (Auto) 5.2 (1.5-6.6) 10^3/uL Lymph # (Auto) 1.1 L (1.5-3.5) 10^3/uL [place] # (Auto) 0.6 (0.0-1.0) 10^3/uL Eos # (Auto) 0.0 (0.0-0.7) 10^3/uL Baso # (Auto) 0.0 (0.0-0.1) 10^3/uL Absolute Nucleated RBC 0.00 x10^3/uL Nucleated RBC % 0.1 /100WBC Sodium (135-145) mmol/L Potassium (3.5-5.0) mmol/L Chloride (101-111) mmol/L Carbon Dioxide (21-32) mmol/L Anion Gap (6-13) BUN (6-20) mg/dL Creatinine (0.6-1.2) mg/dL Estimated GFR (MDRD) (>89) Glucose (70-100) mg/dL Calcium (8.5-10.3) mg/dL Magnesium (1.7-2.8) mg/dL Total Bilirubin (0.2-1.0) mg/dL AST (10-42) IU/L ALT (10-60) IU/L Alkaline Phosphatase (42-121) IU/L Total Protein (6.7-8.2) g/dL Albumin (3.2-5.5) g/dL Globulin (2.1-4.2) g/dL Albumin/Globulin Ratio (1.0-2.2) Urine Opiates Screen (NEGATIVE) Ur Oxycodone Screen (NEGATIVE) Urine Methadone Screen (NEGATIVE) Ur Propoxyphene Screen (NEGATIVE) Ur Barbiturates Screen (NEGATIVE) Ur Tricyclics Screen (NEGATIVE) Ur Phencyclidine Scrn (NEGATIVE) Ur Amphetamine Screen (NEGATIVE) U Methamphetamines Scrn (NEGATIVE) U Benzodiazepines Scrn (NEGATIVE) Urine Cocaine Screen (NEGATIVE) U Cannabinoids Screen (NEGATIVE) ABX Reporting Has patient been on IV antibiotics over the past 48 hours?: No Sepsis Event Note (H) - Evaluation Current Stage of Sepsis: Ruled out Assessment/Plan - Problem List (1) Hyponatremia Impression: 06/18 improved, Na is 127 today continue NS of IVF continue lab monitor pt is asymptomatic, Na is 118. pt has hx of Na around 130 will correct with NS of IVF, since pt is asymptomatic Lab monitor Hold pt HCTZ advise pt quit alcohol (2) Hypokalemia Conclusion/Plan: resolved pt's k is 3.3, asymptomatic, will replacement with potassium lab monitor (3) High blood pressure Conclusion/Plan: table. continue beta-mely and Losartan pt present mild elevated BP with slight tachycardia Hold his HCTZ, resume his home meds Losartan add Beta-mely vital monitor (4) Anxiety Conclusion/Plan: 06/18 stable pt report hx of anxiety which can cause his tachycardia will resume home home after reconcile add Ativan PRN now (5) Currently smokes tobacco Conclusion/Plan: advise pt quit smoking, pt decline nicotine Patch (6) Alcohol abuse Conclusion/Plan: advise pt's alcohol issue for quitting. CAWA protocol vital monitor (7) Tachycardia Conclusion/Plan: resolved it seems caused by pt's anxiety. EKG reveals ST at HR 103. pt denies chest pain, palpitation treat anxiety add beta-mely tele and vital monitor (3) High blood pressure Qualifiers: Hypertension type: other secondary hypertension Qualified Code(s): I15.8 - Other secondary hypertension
[2018-06-19] MEDS: SODIUM CHLORIDE 0.9% 1,000 ML IV SCH (05:40)
[2018-06-19 06:29] LABS: BASOPHILS % (AUTO) 0.5 %; EOSINOPHILS % (AUTO) 0.5 %; HGB - HEMOGLOBIN 11.1 g/dL (14.0-18.0); LYMPHOCYTES # (AUTO) 0.9 10^3/uL (1.5-3.5); LYMPHOCYTES % (AUTO) 20.2 %; MEAN CORPUSCULAR HEMOGLOBIN 30.9 pg (27.0-31.0); MEAN CORPUSCULAR HGB CONC 33.5 g/dL (32.0-36.0); MEAN CORPUSCULAR VOLUME 92.4 fL (80.0-94.0); MEAN PLATELET VOLUME 5.8 fL (7.4-11.4); MONOCYTES # (AUTO) 0.4 10^3/uL (0.0-1.0); MONOCYTES % (AUTO) 7.8 %; NEUTROPHILS # (AUTO) 3.3 10^3/uL (1.5-6.6); PLT - PLATELET COUNT 210 10^3/uL (130-450); RED BLOOD COUNT 3.58 10^6/uL (4.70-6.10); WHITE BLOOD COUNT 4.6 x10^3/uL (4.8-10.8)
[2018-06-19 06:41] LABS: ALBUMIN 3.3 g/dL (3.2-5.5); ALBUMIN/GLOBULIN RATIO 1.3 (1.0-2.2); BILIRUBIN,TOTAL 0.9 mg/dL (0.2-1.0); CALCIUM 8.2 mg/dL (8.5-10.3); CREATININE 1.1 mg/dL (0.6-1.2); TOTAL PROTEIN 5.9 g/dL (6.7-8.2)
[2018-06-19] MEDS: SODIUM CHLORIDE FLUSH 0.9% 10 ML SYRINGE IVP SCH ×2 (06:46→08:40)
[2018-06-19 08:25] VITALS: BP 128/86
[2018-06-19] MEDS: ASPIRIN 325 MG TABLET PO SCH (08:39)
[2018-06-19] MEDS: THIAMINE 100 MG TABLET PO SCH (08:39)
[2018-06-19] MEDS: LOSARTAN 50 MG TABLET PO SCH (08:39)
[2018-06-19] MEDS: METOPROLOL SUCCINATE 25 MG TABLET PO SCH (08:40)
[2018-06-19] MEDS: FAMOTIDINE 20 MG TABLET PO SCH (08:40)
[2018-06-19] MEDS: buPROPion XL 150 MG TABLET PO SCH (08:40)
[2018-06-19] MEDS: POLYETHYLENE GLYCOL 3350 17 GM PACKET PO SCH (08:40)
[2018-06-19] MEDS: PRENATAL VITAMIN TABLET PO SCH (08:40)
--- NOTE | 2018-06-19 10:57 | Discharge Plan ---
Discharge Plan Disposition: Home, Self Care Condition: Poor Prescriptions: Metoprolol Succinate [Toprol Xl] 25 mg PO DAILY #10 tablet Diet: Regular Activity Restrictions: Activity as Tolerated Shower Restrictions: No (fall precaution) Instruction Topics: Hyponatremia Dc, Metoprolol tablets Additional Instructions or Follow Up instructions: You may followup your PCP and another blood work in one week. You were found to have hyponatremia at hospital. Now your sodium level come back to your baseline. You had a hx of chronic hyponatremia. Your hydrochlorothiazide is hold now for your hyponatremia. Metoprolol is prescribed for your blood pressure control. Should your symptoms return or worsen, you may present ER or call 911 for help. No Smoking: If you smoke, Please STOP! Call for help. Follow-up with: Nora Brooks DNP [Primary Care Provider] -
--- NOTE | 2018-06-19 11:04 | DISCHARGE SUMMARY ---
Discharge Summary Discharge Date: 06/19/18 Discharging Provider: ANGULO Primary Care Provider: Nora Lester Condition at Discharge: Poor Discharge Disposition: 01 Home, Self Care Discharge Facility Name: home - DIAGNOSES Admission Diagnoses: (1) Hyponatremia (2) Hypokalemia (3) High blood pressure (4) Anxiety (5) Currently smokes tobacco (6) Alcohol abuse (7) Tachycardia Discharge Diagnoses with Status of Each Condition: 1) Hyponatremia Improved. Na is 128 today. pt is asymptomatic at all. Pt has hx of chronic hyponatremia. Pt's HCTZ is hold now. followup PCP and recheck Na in one week (2) Hypokalemia resolved (3) High blood pressure stable, Metoprolol succinate is prescribed to pt now. HCTZ is hold (4) Anxiety stable, continue home meds (5) Currently smokes tobacco consult and advise pt quit (6) Alcohol abuse consult and advise pt quit (7) Tachycardia resolved. - HPI History of Present Illness: Mr. Palomo is a 53-year-old male with a past medical history of hypertension, anxiety, chronic hyponatremia, current cigarette smoker, and alcohol abuse, who was sent by his PCP for abnormal electrolytic. Pt state he went to see his PCP today morning and had blood work. today afternoon he was called by his PCP to go to ER for his low sodium. He report he "has no symptoms at all". There is no nausea, vomiting, abdominal pain, headache, chest pain, confusion, loss of energy, drowsiness or fatigue, muscle spasms or cramps, seizure. Pt report he has hx of HTN, he took hydrochlorothiazide 12.5 mg daily and losartan 100 mg daily. he also report when he feels anxiety he may feel his heart pace running a little fast. Pt denies chest pain, shortness of breath, headache. He report he still smoke cigarette one pack daily, drink 6 pack of beer daily. He denies illicit drug abuse. he report he is unemployed disability status because of his hip replacement. His Na is 118, K is 3.3, other lab value are unremarkable. EKG reveals ST with HR at 103, otherwise he is hemodynamic stable. - HOSPITAL COURSE Hospital Course: pt was admitted for hyponatremia t 118. after treatment, pt's sodium is 128. pt is totally asymptomatic. pt has hx of chronic hyponatremia, Pt's HCTZ is hold now. followup PCP and recheck Na in one week - ALLERGIES Allergies/Adverse Reactions: Allergies Allergy/AdvReac Type Severity Reaction Status Date / Time hydrocodone Allergy Itching Verified 06/17/18 14:39 acetaminophen [From Percocet] AdvReac Nausea Verified 06/17/18 14:39 oxycodone HCl * AdvReac Nausea Verified 06/17/18 14:39 [From Percocet] - MEDICATIONS Home Medications: Ambulatory Orders Medication Instructions Recorded Confirmed Aspirin 325 mg PO DAILYWM 06/17/18 06/17/18 Losartan Potassium [Cozaar] 100 mg PO DAILY 06/17/18 06/17/18 buPROPion [Wellbutrin Xl] 150 mg PO DAILY 06/17/18 06/17/18 Metoprolol Succinate [Toprol Xl] 25 mg PO DAILY #10 tablet 06/19/18 - PHYSICAL EXAM AT DISCHARGE General Appearance: positive: No acute distress, Alert. negative: Lethargic Eyes Bilateral: positive: Normal inspection, PERRL, No lid inflammation, Conjunctivae nml ENT: positive: ENT inspection nml, Pharynx nml, No signs of dehydration. negative: Purulent nasal drainage, Pharyngeal erythema, Oral lesions Neck: positive: Nml inspection, Thyroid nml, No JVD, Trachea midline. negative: Thyromegaly, Lymphadenopathy (R), Lymphadenopathy (L), Stiff neck, Swelling/bruising, Tracheal deviation Respiratory: positive: Chest non-tender, No respiratory distress, Breath sounds nml. negative: Wheezes, Rales, Rhonchi Cardiovascular: positive: Regular rate & rhythm, No murmur, No gallop. negative: Irregularly irregular, Extrasystoles, Tachycardia, Bradycardia, JVD present, Systolic murmur, Diastolic murmur Peripheral Pulses: positive: 2+ Abdomen: positive: Non-tender, No organomegaly, Nml bowel sounds, No distention. negative: Tenderness, Guarding, Rebound Back: positive: Nml inspection. negative: CVA tenderness (R), CVA tenderness (L) Skin: positive: Color nml, No rash, Warm, Dry. negative: Cyanosis, Diaphoresis, Pallor Extremities: positive: Non-tender, Full ROM, Nml appearance. negative: Calf tenderness, Joint swelling, Brennen's sign/cords Neurologic/Psychiatric: positive: Oriented x3, Motor nml, Sensation nml, Mood/affect nml. negative: Weakness, Sensory loss, Facial droop, Slurred/abnml speech - LABS Result Diagrams: 06/19/18 06:15 06/19/18 06:15 - SEPSIS Current Stage of Sepsis: Ruled out - FOLLOW UP Follow Up: You may followup your PCP and another blood work in one week. You were found to have hyponatremia at hospital. Now your sodium level come back to your baseline. You had a hx of chronic hyponatremia. Your hydrochlorothiazide is hold now for your hyponatremia. Metoprolol is prescribed for your blood pressure control. Should your symptoms return or worsen, you may present ER or call 911 for help. - TIME SPENT Time Spent in Discharge (Minutes): 55
== END 2018-06-19 11:50 | disposition home or self-care (01) | DRG 641 ==
LOC: ED 14:28 → MS2 17:53
PROVIDERS: ADMIT Nurse Practitioner Gerontology; ATTEND Nurse Practitioner Gerontology
DX: E87.1 Hypo-osmolality and hyponatremia (principal); E87.6 Hypokalemia; I10 Essential (primary) hypertension; F17.200 Nicotine dependence, unspecified, uncomplicated; F41.9 Anxiety disorder, unspecified; F10.10 Alcohol abuse, uncomplicated; F17.210 Nicotine dependence, cigarettes, uncomplicated; Z79.899 Other long term (current) drug therapy; Z96.649 Presence of unspecified artificial hip joint; Z79.82 Long term (current) use of aspirin; D64.9 Anemia, unspecified; F10.20 Alcohol dependence, uncomplicated; E03.9 Hypothyroidism, unspecified
CPT/HCPCS: 36415; 70450; 80048; 80053; 80061; 80306; 82607; 82728; 82746; 83540; 83721; 83735; 84295; 84432; 84439; 84443; 84466; 84481; 85025; 86376; 86800; 93005; 96360; 99283; 99284

== ENCOUNTER 2018-06-22 08:00 | Outpatient (CLI) | payer MEDICARE, MEDICAID ==
[2018-06-22 13:50] LABS: BASOPHILS % (AUTO) 0.5 %; EOSINOPHILS % (AUTO) 0.7 %; HGB - HEMOGLOBIN 12.8 g/dL (14.0-18.0); LYMPHOCYTES # (AUTO) 1.3 10^3/uL (1.5-3.5); LYMPHOCYTES % (AUTO) 20.2 %; MEAN CORPUSCULAR HEMOGLOBIN 31.4 pg (27.0-31.0); MEAN CORPUSCULAR HGB CONC 34.5 g/dL (32.0-36.0); MEAN CORPUSCULAR VOLUME 91.2 fL (80.0-94.0); MEAN PLATELET VOLUME 6.3 fL (7.4-11.4); MONOCYTES # (AUTO) 0.6 10^3/uL (0.0-1.0); MONOCYTES % (AUTO) 9.1 %; NEUTROPHILS # (AUTO) 4.6 10^3/uL (1.5-6.6); NEUTROPHILS % (AUTO) 69.5 %; PLT - PLATELET COUNT 309 10^3/uL (130-450); RED BLOOD COUNT 4.06 10^6/uL (4.70-6.10); RED CELL DISTRIBUTION WIDTH 13.3 % (12.0-15.0); WHITE BLOOD COUNT 6.6 x10^3/uL (4.8-10.8)
[2018-06-22 14:30] LABS: BUN - BLOOD UREA NITROGEN < 5 mg/dL (6-20); CALCIUM 9.2 mg/dL (8.5-10.3); CARBON DIOXIDE - CO2 23 mmol/L (21-32); CHLORIDE 101 mmol/L (101-111); CREATININE 0.6 mg/dL (0.6-1.2); GFR - MDRD 170 (>89); GLUCOSE 104 mg/dL (70-100); SODIUM 131 mmol/L (135-145)
== END 2018-06-22 08:01 | disposition home or self-care (01) ==
LOC: LAB.N 08:00
PROVIDERS: ATTEND Physician Assistant Medical
DX: D64.9 Anemia, unspecified (principal); E87.1 Hypo-osmolality and hyponatremia
CPT/HCPCS: 36415; 80048; 85025

== ENCOUNTER 2018-10-04 08:00 | Outpatient (CLI) | payer MEDICARE, MEDICAID ==
[2018-10-04 13:38] LABS: BASOPHILS % (AUTO) 0.3 %; EOSINOPHILS # (AUTO) 0.1 10^3/uL (0.0-0.7); EOSINOPHILS % (AUTO) 1.2 %; HGB - HEMOGLOBIN 13.5 g/dL (14.0-18.0); LYMPHOCYTES # (AUTO) 1.9 10^3/uL (1.5-3.5); LYMPHOCYTES % (AUTO) 27.2 %; MEAN CORPUSCULAR HEMOGLOBIN 31.2 pg (27.0-31.0); MEAN CORPUSCULAR VOLUME 94.6 fL (80.0-94.0); MEAN PLATELET VOLUME 6.8 fL (7.4-11.4); MONOCYTES # (AUTO) 0.8 10^3/uL (0.0-1.0); NEUTROPHILS # (AUTO) 4.3 10^3/uL (1.5-6.6); NEUTROPHILS % (AUTO) 60.3 %; PLT - PLATELET COUNT 366 10^3/uL (130-450); RED BLOOD COUNT 4.33 10^6/uL (4.70-6.10); RED CELL DISTRIBUTION WIDTH 14.4 % (12.0-15.0); WHITE BLOOD COUNT 7.2 x10^3/uL (4.8-10.8)
[2018-10-04 13:58] LABS: CALCIUM 9.5 mg/dL (8.5-10.3)
== END 2018-10-04 23:59 | disposition home or self-care (01) ==
LOC: LAB.N 08:00
PROVIDERS: ATTEND Physician Assistant Medical
DX: I10 Essential (primary) hypertension (principal); D64.9 Anemia, unspecified; E87.1 Hypo-osmolality and hyponatremia
CPT/HCPCS: 36415; 80048; 82728; 83540; 84466; 85025